=== PATIENT | male | born 1950 | race Caucasian/White ===

== ENCOUNTER → 2019-11-05 | Outpatient (CLI) | payer MEDICARE, OTHER ==
[~2019-11-05] MED LIST: OMNIPAQUE 350 MG/ML, 100ML BOTTLE ONE
== END | disposition home or self-care (01) ==
LOC: CFH 11:47
PROVIDERS: ATTEND Urology
DX: C61 Malignant neoplasm of prostate (principal); M43.17 Spondylolisthesis, lumbosacral region; M12.88 Other specific arthropathies, not elsewhere classified, other specified site; M47.816 Spondylosis without myelopathy or radiculopathy, lumbar region; I70.0 Atherosclerosis of aorta; Z96.641 Presence of right artificial hip joint
CPT/HCPCS: 74177; 82565; Q9967